=== PATIENT | male | born 1970 | race Caucasian/White ===

== ENCOUNTER 2017-04-17 06:01 | Day surgery (SDC) | payer MEDICAID ==
[~2017-04-17 06:01] MED LIST: ACETAMINOPHEN 1,000 MG/100 ML BTL IV ONE
[2017-04-17 06:29] LABS: ANION GAP 10.5 (7-16); BLOOD UREA NITROGEN 11 mg/dL (9-20); CARBON DIOXIDE 26.5 mmol/L (22-30); CREATININE 0.8 mg/dL (0.66-1.25); EST GLOMERULAR FILTRATION RATE > 60 ml/min; GLUCOSE,RANDOM 149 mg/dL (70-110)
[2017-04-17] MEDS ORDERED: FENTANYL PF 100MCG/2ML VIAL IV ONE (14:00)
[2017-04-17] MEDS ORDERED: ROPIVACAINE HCL (NAROPIN) /PF 5MG/ML 20ML VIAL IV ONE (14:00)
[2017-04-17] MEDS ORDERED: LIDOCAINE 2% MDV (20MG/ML) 20ML VIAL IV ONE (14:00)
[2017-04-17] MEDS ORDERED: SEVOFLURANE 250 ML INH ONE (14:00)
[2017-04-17] MEDS ORDERED: MIDAZOLAM HCL 2MG/2ML VIAL IV ONE (14:00)
[2017-04-17] MEDS ORDERED: PROPOFOL 10 MG/ML VIAL IV ONE (14:00)
--- NOTE | 2017-04-18 13:34 | Operative Note ---
DATE OF SURGERY: 04/17/2017 Surgeon: Clayton Oquendo D.O. REFERRING PHYSICIAN: DARREL Ugarte PREOPERATIVE DIAGNOSIS: Carpal tunnel syndrome in the right wrist. POSTOPERATIVE DIAGNOSIS: Carpal tunnel syndrome in the right wrist. OPERATION: Decompression right median nerve of the wrist using 3.5 loupe magnification. PROCEDURE: This 46-year-old male was taken to the Operating Room and placed in the supine position on the operating room table. He did receive a median nerve block preop; however, that did not provide satisfactory anesthetic and general anesthesia was subsequently induced. The right upper extremity was then elevated, prepped with Hibiclens and draped in the usual sterile fashion. It was exsanguinated and the tourniquet inflated to 250 mmHg. A palmar incision was utilized following the hypothenar crease from the level of the base of the webspace of the thumb to the flexor crease of the wrist. Dissection was carried down through the skin and subcutaneous tissue. Hemostasis was obtained with electrocautery. Palmar fascia was devided in line with a skin incision to expose the flexor retinaculum which was punctured, split to its proximal margin. With the contents of the carpal tunnel under direct vision. The transverse carpal ligament was transected along its ulnar border and the radial flap was raised to expose the entire median nerve. The median nerve itself appeared normal other than the fact that there was some mild atrophy of the nerve but the recurrent motor branch appeared normal. The wound was irrigated, tourniquet released, hemostasis obtained with electrocautery, and the wound closed with interrupted 6-0 Nylon suture. Sterile dressings were applied with plaster splint immobilization with the wrist in slight dorsiflexion and the thumb in an adducted position. [facility]
== END 2017-04-17 08:15 | disposition home or self-care (01) ==
LOC: SUR 06:01
PROVIDERS: ATTEND Orthopaedic Surgery
DX: G56.01 Carpal tunnel syndrome, right upper limb (principal); G56.21 Lesion of ulnar nerve, right upper limb; E11.9 Type 2 diabetes mellitus without complications; Z79.4 Long term (current) use of insulin; Z79.84 Long term (current) use of oral hypoglycemic drugs; E78.00 Pure hypercholesterolemia, unspecified
CPT/HCPCS: 64721; 01810; 64450; 80048; J3010; J2795; 1992; 76942